=== PATIENT | male | born 1990 | race Caucasian/White ===

== ENCOUNTER 2020-12-20 10:13 | Emergency (ER) | payer OTHER ==
[2020-12-20 10:25] VITALS: RESP 20; TEMP 98
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
[2020-12-20 12:49] VITALS: BP 134/76; PULSE 66
== END 2020-12-20 12:47 | disposition home or self-care (01) ==
LOC: EC 10:13
DX: S16.1XXA Strain of muscle, fascia and tendon at neck level, initial encounter (principal); V43.52XA Car driver injured in collision with other type car in traffic accident, initial encounter; Y92.410 Unspecified street and highway as the place of occurrence of the external cause; J45.909 Unspecified asthma, uncomplicated; F32.9 Major depressive disorder, single episode, unspecified; F12.90 Cannabis use, unspecified, uncomplicated
CPT/HCPCS: 72050; 99283